=== PATIENT | female | born 1965 | race Caucasian/White ===

== ENCOUNTER 2021-08-11 10:23 | Day surgery (SDC) | payer OTHER ==
[~2021-08-11] VITALS: Ht 157.5 cm; Wt 63.5 kg
[2021-08-11] MEDS ORDERED: fentaNYL citrate 0.05 MG/ML VIAL ONE (10:27)
[2021-08-11 12:19] LABS: CREATININE 0.7 mg/dL (0.6-1.3)
[2021-08-11 13:09] LABS: PROTHROMBIN TIME 10.6 secs (10.8-13.4)
[2021-08-11] MEDS ORDERED: BUPIVACAINE-MPF 0.25% 30 ML VIAL INJ ONE (14:38)
[2021-08-11] MEDS ORDERED: LIDOCAINE 1% 500 MG/50 ML VIAL ONE (14:39)
[2021-08-11] MEDS ORDERED: PROPOFOL 200 MG/20 ML VIAL IV ONE (14:40)
[2021-08-11] MEDS ORDERED: MEPERIDINE 50 MG/ML SYR ONE (15:17)
[2021-08-11] MEDS ORDERED: SEVOFLURANE 250 ML BTL INH ONE (16:00)
[2021-08-11] MEDS ORDERED: ONDANSETRON 4 MG/2 ML VIAL ONE (16:13)
[2021-08-11] MEDS ORDERED: KETOROLAC 60 MG/2 ML VIAL IM ONE (16:13)
[2021-08-11] MEDS ORDERED: DEXAMETHASONE 4 MG/ML VIAL ONE (16:13)
[2021-08-11] MEDS ORDERED: LACTATED RINGERS 1,000 ML IV SCH (16:20)
[2021-08-11] MEDS ORDERED: ONDANSETRON 4 MG/2 ML VIAL IVP PRN (16:20)
[2021-08-11] MEDS ORDERED: MEPERIDINE 25 MG/ML SYR IVP PRN (16:20)
[2021-08-11] MEDS ORDERED: diphenhydrAMINE 50 MG/ML VIAL IVP PRN (16:20)
[2021-08-11] MEDS: HYDROmorphone 1 MG/ML AMP IVP PRN ×4 (16:25→16:55)
[2021-08-11] MEDS ORDERED: HYDROmorphone PFS 2 MG/ML SYR ONE (16:27)
== END 2021-08-11 17:55 | disposition home or self-care (01) ==
LOC: MDS 10:23 → MMU 10:28 → MDS 17:55
PROVIDERS: ATTEND Podiatrist Foot & Ankle Surgery
DX: M67.01 Short Achilles tendon (acquired), right ankle (principal); M25.571 Pain in right ankle and joints of right foot; M21.549 Acquired clubfoot, unspecified foot; M76.61 Achilles tendinitis, right leg; M21.761 Unequal limb length (acquired), right tibia; Z79.01 Long term (current) use of anticoagulants; Z79.899 Other long term (current) drug therapy
CPT/HCPCS: 15275; 27685; 36415; 80048; 85610; 85730; J0690; J1100; J1170; J1885; J2001; J2175; J2405; J2704; J3010; J3490; J7060; Q4107